=== PATIENT | male | born 1995 | race Two or more races ===

== ENCOUNTER 2019-06-07 14:25 | Emergency (ER) | payer MEDICAID ==
[~2019-06-07] VITALS: Ht 180.3 cm; Wt 84.0 kg
[2019-06-07 14:44] VITALS: BP 127/77
[2019-06-07] MEDS ORDERED: FAMOTIDINE 20 MG TABLET ONE (15:22)
[2019-06-07] MEDS ORDERED: DEXAMETHASONE 4 MG TABLET ONE (15:22)
[2019-06-07] MEDS ORDERED: FAMOTIDINE 20 MG TABLET PO ONE (15:30)
[2019-06-07] MEDS ORDERED: DEXAMETHASONE 4 MG TABLET PO ONE (15:30)
== END 2019-06-07 15:44 | disposition home or self-care (01) ==
LOC: ED 15:33
DX: S00.86XA Insect bite (nonvenomous) of other part of head, initial encounter (principal); W57.XXXA Bitten or stung by nonvenomous insect and other nonvenomous arthropods, initial encounter; Y93.89 Activity, other specified; Y92.488 Other paved roadways as the place of occurrence of the external cause; Y99.8 Other external cause status
CPT/HCPCS: 99283